=== PATIENT | female | born 1965 | race Caucasian/White ===

== ENCOUNTER 2021-01-06 13:14 | Emergency (ER) | payer OTHER ==
[~2021-01-06] VITALS: Ht 152.4 cm; Wt 83.5 kg
[2021-01-06 14:22] LABS: ABSOLUTE NEUTROPHILS 7.2 thou/uL (1.4-8.2); BASOPHILS 0.7 % (0.0-2.0); EOSINOPHILS 4.1 % (0.0-3.0); HEMATOCRIT 29.7 % (37.0-47.0); HEMOGLOBIN 9.8 gm/dL (12.0-15.0); LYMPHOCYTES 9.9 % (24.0-44.0); MCH 29.8 pg (26.0-34.0); MCV 90.1 fL (80.0-100.0); MONOCYTES 5.7 % (1.0-8.0); PLATELET COUNT 311 thou/uL (150-400); POLYS 79.6 % (36.0-66.0); RBC 3.29 mil/uL (4.20-5.00); RDW 15.3 % (10.5-14.5); WBC 9.1 thou/uL (4.0-11.0)
[2021-01-06 14:28] LABS: CALCIUM 7.8 mg/dL (8.5-10.1); CREATININE 0.7 mg/dL (0.6-1.0)
[2021-01-06 14:34] LABS: ALBUMIN 1.7 g/dL (3.4-5.0); TOTAL BILIRUBIN 0.2 mg/dL (0.2-1.0); TOTAL PROTEIN 5.9 g/dL (6.4-8.2)
[2021-01-06] MEDS ORDERED: CELEXA 20 MG TA20 MG PO (15:08)
[2021-01-06] MEDS ORDERED: 8 HOUR C500 MG PO (15:08)
[2021-01-06] MEDS ORDERED: CALCIUM500 MG PO (15:08)
[2021-01-06] MEDS ORDERED: LEVO-T50 MCG PO (15:08)
[2021-01-06] MEDS ORDERED: VENTOLIN HFA 1818 GM INH (15:09)
[2021-01-06] MEDS ORDERED: PERCOCET 5-3251 EACH PO (15:10)
[2021-01-06 19:57] VITALS: BP 110/59
== END 2021-01-06 19:59 | disposition short-term general hospital (02) ==
LOC: ER 13:14
PROVIDERS: Nurse Practitioner Family
DX: S31.109A Unspecified open wound of abdominal wall, unspecified quadrant without penetration into peritoneal cavity, initial encounter (principal); Z20.822 Contact with and (suspected) exposure to COVID-19; D64.9 Anemia, unspecified; X58.XXXA Exposure to other specified factors, initial encounter; Y93.89 Activity, other specified; Y92.89 Other specified places as the place of occurrence of the external cause; Y99.8 Other external cause status